=== PATIENT | male | born 2000 | race African-American/Black ===

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

== ENCOUNTER 2020-07-20 03:28 | Emergency (ER) | payer BC, MEDICAID ==
[~2020-07-20] VITALS: Ht 188 cm; Wt 82.0 kg
[2020-07-20 03:29] VITALS: BP 134/72
[2020-07-20] MEDS ORDERED: MAGNESIUM/ALUMINUM HYDROXIDE/SIMETHICONE 30ML UDC PO ONE (04:00)
[2020-07-20] MEDS ORDERED: VISCOUS LIDOCAINE 2% 15 ML UDC PO ONE (04:00)
== END 2020-07-20 04:11 | disposition home or self-care (01) ==
LOC: ER 03:28
DX: K20.80 Other esophagitis without bleeding (principal); R03.0 Elevated blood-pressure reading, without diagnosis of hypertension; Z98.890 Other specified postprocedural states
CPT/HCPCS: 99283

== ENCOUNTER 2020-09-22 00:17 | Emergency (ER) | payer BC ==
[~2020-09-22] VITALS: Ht 188 cm; Wt 88.8 kg
[2020-09-22] MEDS ORDERED: IBUPROFEN 600MG TABLET PO ONE (02:00)
[2020-09-22] MEDS ORDERED: LIDOCAINE 5% PATCH TOP SCH (02:00)
[2020-09-22 02:26] VITALS: BP 117/64
== END 2020-09-22 02:27 | disposition home or self-care (01) ==
LOC: ER 00:17
DX: S20.212A Contusion of left front wall of thorax, initial encounter (principal); W51.XXXA Accidental striking against or bumped into by another person, initial encounter; Y93.67 Activity, basketball; Y92.89 Other specified places as the place of occurrence of the external cause; F12.90 Cannabis use, unspecified, uncomplicated
CPT/HCPCS: 71045; 93005; 99283